=== PATIENT | male | born 1950 | race Caucasian/White ===

== ENCOUNTER 2018-05-14 13:19 | Inpatient (IN) ==
[2018-05-14] MEDS ORDERED: Isovue-370 500 ML INFUS..BTL IV ONE (13:44)
[2018-05-14] MEDS ORDERED: Nitroglycerin 0.4 MG TAB.SUBL SL ONE (13:44)
[2018-05-14] MEDS ORDERED: Aspirin 81 MG TAB.CHEW PO ONE (13:44)
--- NOTE | 2018-05-14 13:49 | Emergency Department Note ---
Disposition Clinical Impression: Unstable angina Hypertension Qualifiers: Hypertension type: unspecified Qualified Code(s): I10 - Essential (primary) hypertension Disposition: Admitted As Inpatient Condition: Good Referrals: NONE,PCP [Primary Care Provider] - Gale Greene [Family Provider] - Forms: ED Satisfaction Letter Time of Disposition: 16:08 General Adult HPI - General Chief complaint: ED Chest Pain Stated complaint: chest pain/MARGRET Time Seen by Provider: 05/14/18 13:27 Source: patient Mode of arrival: ambulatory Limitations: no limitations Nursing Notes Reviewed: Yes Vital Signs Reviewed: Yes - History of Present Illness HPI Narrative: 68-year-old male who states no significant past medical history presenting to the emergency department chief complaint of chest pressure, headache and blurry vision. Patient stated start today. Describes substernal chest pressure radiating down the bilateral arms. Denies nausea, vomiting or diaphoresis. Denies any cardiac history. Does state strong family history. Did not take any medications at home for this. Patient states also today he started having a throbbing headache with some blurry vision. Patient states he does not normally have headaches. Patient has not tried any medications for this. Patient denies phonophobia and photophobia. Headache is located above the bilateral eyes and wraps around in a bandlike fashion. Patient states his chest pressure is causing him to have some shortness of breath as well. Denies any COPD or asthma but does disclose a [id number] history Pain Scale: 8 - Related Data Home Medications Medication Instructions Recorded Confirmed No Known Home Drugs 05/14/18 05/14/18 Allergies Allergy/AdvReac Type Severity Reaction Status Date / Time No Known Allergies Allergy Verified 05/14/18 13:44 All systems ED: reviewed and negative except as stated. Constitutional: Denies: fever, chills Eyes: Reports: vision change ENT ED: Reports: as per HPI Cardiovascular: Reports: chest pain. Denies: palpitations, dyspnea on exertion Respiratory: Reports: dyspnea. Denies: cough, wheezes, hemoptysis Gastrointestinal: Denies: abdominal pain, nausea, vomiting Genitourinary: Reports: as per HPI Musculoskeletal: Reports: as per HPI Integumentary: Denies: rash, abrasion Neurological: Reports: headache. Denies: weakness, numbness, paresthesias Psychiatric: Reports: as per HPI Endocrine: Reports: as per HPI Hematological/Lymphatic: Reports: as per HPI Allergic/Immunologic: Reports: as per HPI Past Medical History - Past Medical History Attestation: Yes The following information was validated with the patient. Medical history: Reports: myocardial infarction - Social History Smoking Status: Former smoker Smokeless Tobacco Status: No Alcohol use: Reports: none Drug use: Reports: none Physical Exam - General Limitations: no limitations General appearance: alert, in no apparent distress - Head Head exam: atraumatic, normocephalic, normal inspection - Eye Eye exam: Present: normal appearance, PERRL, EOMI. Absent: scleral icterus, conjunctival injection - ENT ENT exam: normal exam, mucous membranes moist - Neck Neck exam: Present: normal inspection, full ROM. Absent: tenderness, meningismus - Chest Chest inspection: Present: normal inspection, symmetric chest wall rise. Absent : tenderness, rash - Respiratory Respiratory exam: Present: normal lung sounds bilaterally, respiratory distress. Absent: wheezes, stridor - Cardiovascular Cardiovascular exam: Present: regular rate, normal rhythm, normal heart sounds - Abdominal Exam Abdominal exam: Present: soft, Non-Tender. Absent: distention, guarding, rebound - Extremities Exam Extremities exam: Present: normal inspection, full ROM - Neurological Exam Neurological exam: Present: alert, oriented X3, CN II-XII intact, normal gait. Absent: motor sensory deficit - Psychiatric Psychiatric exam: Present: normal affect, normal mood - Skin Skin exam: Present: warm, intact Course Course Narrative: 68-year-old male presenting to the emergency department for chest pressure. When patient arrived he was extremely hypertensive with systolic 212. Patient having active chest pressure upon arrival. EKG did show ST segment elevation in V1 but no reciprocal changes. He will obtain a cardiac workup including troponin and chest x-ray along with basic laboratory analysis. 3 nitroglycerin sublingually will also be given. Patient will be reassessed to determine further evaluation. Disposition most likely admission the pending results. Patient is alert and oriented 3 in the room. Hypertensive but otherwise stable vital signs. Patient agrees with this plan. - Reevaluation(s) Reevaluation #1: Patient blood pressure and chest pain responded well to nitroglycerin. Still hypertensive and still having mild chest pain therefore we will starting nitro drip. I spoke with the piece presser manager relationship Dr. Jiang who agrees to anticoagulate the patient at this time. We will place that patient on heparin and plans admit him. I spoke with hospice manager relationship Dr. Jain who agrees to accept the patient. Patient is still hypertensive but otherwise vital signs stable. He is alert and oriented 3 in the room. Patient agrees with this plan. Laboratory analysis and chest x-ray within normal limits. Due to patient vision changes and headache CT of the head and neck were completed which were also within normal limits. Patient states his blurry vision is now resolved his blood pressure is lowered. Vital Signs Temperature 97.7 F 05/14/18 13:24 Pulse Rate 83 05/14/18 13:24 Respiratory Rate 20 05/14/18 13:24 Blood Pressure 222/103 05/14/18 13:24 O2 Sat by Pulse Oximetry 97 05/14/18 13:24 Temperature 97.7 F 05/14/18 13:45 Pulse Rate 63 05/14/18 13:50 Respiratory Rate 15 05/14/18 13:50 Blood Pressure 182/102 05/14/18 13:50 O2 Sat by Pulse Oximetry 100 05/14/18 13:50 Oxygen Delivery Oxygen Delivery Room Air Medical Decision Making - Lab Data Result diagrams: 05/14/18 13:49 05/14/18 13:49 Lab Results 05/14/18 05/14/18 05/14/18 Range/Units 13:49 13:49 13:49 WBC 6.4 (4.3-11.1) K/mcL RBC 4.99 (4.19-5.50) M/mcL Hgb 15.8 (12.9-16.9) g/dL Hct 44.5 (37.5-50.1) % MCV 89.2 (83.0-100.0) fL MCH 31.7 (28.0-33.3) pg MCHC 35.5 (31.6-35.5) g/dL RDW 12.7 (11.5-14.5) % Plt Count 250 (140-400) K/mcL MPV 9.7 (9.4-12.4) fL Immature Gran % 0.3 (0-4) % Seg Neutrophils % 48.5 % Lymphocytes % 37.7 % Monocytes % 10.7 % Eosinophils % 1.9 % Basophils % 0.9 % Neutrophils # 3.1 (1.6-8.9) K/mcL Lymphocytes # 2.4 (0.6-4.6) K/mcL Monocytes # 0.7 (0.0-1.3) K/mcL Eosinophils # 0.1 (0.0-0.6) K/mcL Basophils # 0.1 (0.0-0.2) K/mcL PT 11.6 (9.4-12.1) Seconds INR 1.0 APTT 31.0 (26.0-36.0) Seconds Sodium 139 (136-145) mEq/L Potassium 4.0 (3.5-5.1) mEq/L Chloride 106 (98-107) mEq/L Carbon Dioxide 27 (23-29) mEq/L BUN 17 (8-23) mg/dL Creatinine 1.02 (0.70-1.30) mg/dL Est GFR ( Amer) > 60 (> 60) Est GFR (Non-Af Amer) > 60 (> 60) BUN/Creatinine Ratio 17 (6-26) Glucose 99 (70-105) mg/dL Calculated Osmolality 290 (280-300) Calcium 9.9 (8.6-10.3) mg/dL Troponin I < 0.03 (< 0.04) ng/mL - EKG Data EKG #1 EKG attestation: Yes I reviewed and interpreted this EKG. EKG results narrative: Sinus rhythm. [address] elevation noted in V1 but no reciprocal changes. Peaked T waves noted in V2, V3, V4, V5. OR interval 133, QRS 100, QTC 441. No previous EKG to compare to.
[2018-05-14 14:01] LABS: Basophils # 0.1 K/mcL (0.0-0.2); Basophils % 0.9 %; Eosinophils # 0.1 K/mcL (0.0-0.6); Eosinophils % 1.9 %; Hematocrit 44.5 % (37.5-50.1); Hemoglobin 15.8 g/dL (12.9-16.9); Immature Granulocytes % 0.3 % (0-4); Lymphocytes # 2.4 K/mcL (0.6-4.6); Lymphocytes % 37.7 %; Mean Corpuscular HGB Conc 35.5 g/dL (31.6-35.5); Mean Corpuscular Hemoglobin 31.7 pg (28.0-33.3); Mean Corpuscular Volume 89.2 fL (83.0-100.0); Mean Platelet Volume 9.7 fL (9.4-12.4); Monocytes # 0.7 K/mcL (0.0-1.3); Monocytes % 10.7 %; Neutrophils # 3.1 K/mcL (1.6-8.9); Platelet Count 250 K/mcL (140-400); Red Blood Count 4.99 M/mcL (4.19-5.50); Red Cell Distribution Width 12.7 % (11.5-14.5); Segmented Neutrophils % 48.5 %
[2018-05-14 14:06] LABS: Prothrombin Time 11.6 Seconds (9.4-12.1)
[2018-05-14 14:23] LABS: Troponin I < 0.03 ng/mL (< 0.04)
[2018-05-14 14:26] LABS: BUN/Creatinine Ratio 17 (6-26); Blood Urea Nitrogen 17 mg/dL (8-23); Calcium 9.9 mg/dL (8.6-10.3); Carbon Dioxide 27 mEq/L (23-29); Chloride 106 mEq/L (98-107); Glucose 99 mg/dL (70-105); Osmolality,Calculated 290 (280-300); Sodium 139 mEq/L (136-145); eGFR For Non-African Americans > 60 (> 60)
--- NOTE | 2018-05-14 15:37 | Emergency Department Note ---
Disposition Clinical Impression: Unstable angina Hypertension Qualifiers: Hypertension type: unspecified Qualified Code(s): I10 - Essential (primary) hypertension Disposition: Admitted As Inpatient Condition: Good Forms: ED Satisfaction Letter Time of Disposition: 15:37 General Adult HPI - General Chief complaint: ED Chest Pain Stated complaint: chest pain/MARGRET Time Seen by Provider: 05/14/18 13:27 Source: patient Limitations: no limitations - History of Present Illness Pain Scale: 8 - Related Data Home Medications Medication Instructions Recorded Confirmed No Known Home Drugs 05/14/18 05/14/18 Allergies Allergy/AdvReac Type Severity Reaction Status Date / Time No Known Allergies Allergy Verified 05/14/18 13:44 Past Medical History - Past Medical History Medical history: Reports: myocardial infarction - Social History Smoking Status: Former smoker Smokeless Tobacco Status: No Alcohol use: Reports: none Drug use: Reports: none Physical Exam - General Limitations: no limitations General appearance: alert Course Vital Signs Temperature 97.7 F 05/14/18 13:24 Pulse Rate 83 05/14/18 13:24 Respiratory Rate 20 05/14/18 13:24 Blood Pressure 222/103 05/14/18 13:24 O2 Sat by Pulse Oximetry 97 05/14/18 13:24 Temperature 97.7 F 05/14/18 13:45 Pulse Rate 63 05/14/18 13:50 Respiratory Rate 15 05/14/18 13:50 Blood Pressure 182/102 05/14/18 13:50 O2 Sat by Pulse Oximetry 100 05/14/18 13:50 Oxygen Delivery Oxygen Delivery Room Air Medical Decision Making - Lab Data Result diagrams: 05/14/18 13:49 05/14/18 13:49 Lab Results 05/14/18 05/14/18 05/14/18 Range/Units 13:49 13:49 13:49 WBC 6.4 (4.3-11.1) K/mcL RBC 4.99 (4.19-5.50) M/mcL Hgb 15.8 (12.9-16.9) g/dL Hct 44.5 (37.5-50.1) % MCV 89.2 (83.0-100.0) fL MCH 31.7 (28.0-33.3) pg MCHC 35.5 (31.6-35.5) g/dL RDW 12.7 (11.5-14.5) % Plt Count 250 (140-400) K/mcL MPV 9.7 (9.4-12.4) fL Immature Gran % 0.3 (0-4) % Seg Neutrophils % 48.5 % Lymphocytes % 37.7 % Monocytes % 10.7 % Eosinophils % 1.9 % Basophils % 0.9 % Neutrophils # 3.1 (1.6-8.9) K/mcL Lymphocytes # 2.4 (0.6-4.6) K/mcL Monocytes # 0.7 (0.0-1.3) K/mcL Eosinophils # 0.1 (0.0-0.6) K/mcL Basophils # 0.1 (0.0-0.2) K/mcL PT 11.6 (9.4-12.1) Seconds INR 1.0 APTT 31.0 (26.0-36.0) Seconds Sodium 139 (136-145) mEq/L Potassium 4.0 (3.5-5.1) mEq/L Chloride 106 (98-107) mEq/L Carbon Dioxide 27 (23-29) mEq/L BUN 17 (8-23) mg/dL Creatinine 1.02 (0.70-1.30) mg/dL Est GFR ( Amer) > 60 (> 60) Est GFR (Non-Af Amer) > 60 (> 60) BUN/Creatinine Ratio 17 (6-26) Glucose 99 (70-105) mg/dL Calculated Osmolality 290 (280-300) Calcium 9.9 (8.6-10.3) mg/dL Troponin I < 0.03 (< 0.04) ng/mL Attestation Statement - Attestation Attestation: I examined this patient and my medical decision-making was reviewed with the Resident Physician. I agree with the documented findings, disposition and treatment plan as described except to the extent set forth below. 68 year old male presents to the ED with complaints of chest pain that radiates into his head and neck and was hypertensive to 220/120 and has a mutlipe risk factors for ACS in addition to significant family hsitroy of [place] beforethe age of 50 with mulitple family memebers. PAtient CTA head and neck are negative and troponin is negative in addition he has a wellens type appearnace to V1 -V3. We have treated him with nitro and he is sitll havign chest pain and will place him on a drip seoncdary to blood pressur eimproving but still being elvated to 180/100. We will consutl cards to assess for need for hepraizatino and then admit to medicine
[2018-05-14] MEDS ORDERED: *HR* Heparin 5,000 UNIT/ML VIAL IVP ONE (15:42)
[2018-05-14] MEDS ORDERED: *HR* Heparin 5,000 UNIT/ML VIAL IVP PRN ×2 (15:42)
[2018-05-14] MEDS ORDERED: Heparin 25,000 UNIT/500 ML D5W 25,000 UNIT/500 ML BAG IVC SCH (15:45)
[2018-05-14] MEDS ORDERED: Nitroglycerin 25 MG/250 ML INFUS..BTL IVC SCH (15:45)
[2018-05-14] MEDS ORDERED: Naloxone 0.4 MG/ML INJ IVP PRN (16:21)
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
[2018-05-15 00:01] LABS: Heparin anti-factor XA UFH 0.54 IU/mL (0.30-0.70)
[2018-05-15 05:27] LABS: Hematocrit 40.8 % (37.5-50.1); Hemoglobin 14.4 g/dL (12.9-16.9); Mean Corpuscular HGB Conc 35.3 g/dL (31.6-35.5); Mean Corpuscular Hemoglobin 30.8 pg (28.0-33.3); Mean Corpuscular Volume 87.2 fL (83.0-100.0); Mean Platelet Volume 9.9 fL (9.4-12.4); Platelet Count 255 K/mcL (140-400); Red Blood Count 4.68 M/mcL (4.19-5.50); Red Cell Distribution Width 13.1 % (11.5-14.5)
[2018-05-15 05:54] LABS: BUN/Creatinine Ratio 17 (6-26); Blood Urea Nitrogen 17 mg/dL (8-23); Calcium 9.4 mg/dL (8.6-10.3); Carbon Dioxide 29 mEq/L (23-29); Chloride 104 mEq/L (98-107); Glucose 117 mg/dL (70-105); Osmolality,Calculated 293 (280-300); Phosphorous 3.9 mg/dL (2.7-4.5); Potassium 4.1 mEq/L (3.5-5.1); Sodium 140 mEq/L (136-145); eGFR For Non-African Americans > 60 (> 60)
[2018-05-15 07:06] VITALS: BP 136/80
[2018-05-15] MEDS ORDERED: Acetaminophen 325 MG TABLET PO PRN (07:25)
[2018-05-15] MEDS ORDERED: Aspirin 81 MG TAB.CHEW PO SCH (09:00)
[2018-05-15] MEDS ORDERED: amLODIPine 5 MG TABLET PO SCH (09:00)
--- NOTE | 2018-05-15 11:21 | Discharge Summary ---
Date of Encounter: 05/15/18 Time of Encounter: 08:00 - Discharge Diagnosis (1) Acute coronary syndrome Priority: Primary Status: Acute Assessment and Plan: 68 year old male with pmh of hypertension for which he admits to not taking any meds complains of a 3 day history of shortness of breath, chest pain, headaches and blurry vision. Patient notes he has had these symptoms before but they have never lasted this long. Stated he also began having chest pain, which felt like someone sitting on his chest. In the ER, BP was noted to be elevated at 220/120, and he was started on a nitroglycerin drip. An EKG also showed ST elevated in V1 and some T waves, cardiology was consulted and they recommended starting a heparin drip. He will be admitted for further management for possible acute coronary syndrome. By this am, he was feeling better with better blood pressure control. His troponins noted to have stayed flat. An echo was done showing LV diastolic dysfunction and inferior wall hypokinesis. He told the nurse he was signing out against medical advice because there's no one at home to take care of his dad. Olga was counseled against signing out and risks of not taking his BP meds or obtaining his cardiac work up was explained to him. He insisted on signing out AMA anyway (2) Hypertensive emergency Priority: Secondary Status: Acute (3) DVT prophylaxis Priority: Secondary Status: Acute Hospital course: Mr. Hassan is a 68 year old male - Time Spent with Patient Total time spent providing and/or coordinating discharge services: - Discharge Medications Home Medications: No Known Home Drugs 05/14/18 [History] Allergies/Adverse Reactions: 3 Allergy/AdvReac Type Severity Reaction Status Date / Time No Known Allergies Allergy Verified 05/14/18 13:44 Date of admission: 05/14/18 16:39 Primary care physician: PCP NONE - Constitutional Vitals: Temp Pulse Resp BP Pulse Ox 97.9 F 64 16 136/80 96 05/15/18 07:05 05/15/18 08:11 05/15/18 07:05 05/15/18 07:05 05/15/18 07:05 - Head Head exam: Present: atraumatic, normocephalic - Eye Eye exam: Present: PERRL, conjuntiva pink, sclera anicteric Pupils: Present: PERRL - Neck Neck exam general surgery: Present: supple, trachea midline. Absent: lymphadenopathy - Respiratory Respiratory exam: Present: CTAB. Absent: accessory muscle use, rales, rhonchi, wheezes - Cardiovascular Cardiovascular exam: Present: RRR, +S1, +S2. Absent: diastolic murmur, gallop, rubs, systolic murmur - GI/Abdominal GI/Abdominal exam: Present: normal bowel sounds, soft, no peritoneal signs. Absent: distended, tenderness - Extremities Exam Extremities exam: Present: warm, radial pulses palpable and symmetrical. Absent : calf tenderness, cyanotic, pedal edema - Neurological Exam Neurological exam: Present: CN II-XII intact, oriented X3, no focal deficits. Absent: pronater drift, facial droop, speech deficit - Skin Skin exam: Present: dry, intact - Patient Status Disposition: Left Against Medical Advice Condition: Good - Discharge Instructions Follow Up With: NONE,PCP [Primary Care Provider] - Gale Greene [Family Provider] -
--- NOTE | 2018-05-15 17:25 | Electrocardiograph Report ---
[address] [address] Test Date: 2018-05-14 Pat Name: Mai Hassan Department: Room: 12 Gender: M Charrer: : 1950 Requested By: Isamar Hamilton Order Number: [id number] Reading MD: Helen Rodriguez Measurements Intervals [place] Rate: 68 P: 55 OR: 133 QRS: 34 QRSD: 100 T: 23 QT: 414 QTc: 441 Interpretive Statements Sinus rhythm Left ventricular hypertrophy Electronically Signed On 05-15-2018 17:24:10 EDT by Helen Rodriguez
== END 2018-05-15 08:23 | disposition left against medical advice (07) | DRG 311 ==
LOC: EMEROOARM 13:19 → 2NNU 13:19
PROVIDERS: ADMIT Internal Medicine; ATTEND Internal Medicine